=== PATIENT | female | born 1965 | race Caucasian/White ===

== ENCOUNTER 2017-01-17 05:22 | Day surgery (SDC) | payer OTHER ==
[~2017-01-17 05:22] MED LIST: LR 1,000 ML IV SCH; cefOXitin SODIUM 2 GM in D5W 100 ML IV ONE
[2017-01-17] MEDS ORDERED: LR 1,000 ML IV ONE (06:06)
[2017-01-17 06:51] LABS: % IMMATURE GRANULYOCYTES 0.5 % (0.0-1.1); ABSOLUTE IMMATURE GRANULOCYTES 0.05 10^3/uL (0.00-0.10); ADD DIFF? NO; ADD MORPH? NO; ADD SCAN? NO; ATYPICAL LYMPHOCYTE FLAG 10 (0-99); FRAGMENT RBC FLAG 0 (0-99); HEMOGLOBIN 13.2 g/dL (12.6-16.3); LEFT SHIFT FLG 0 (0-99); LIPEMIA HEMOLYSIS FLAG 90 (0-99); MEAN CELL HEMOGLOBIN 32.8 pg (27.9-34.1); MEAN CELL HEMOGLOBIN CONCENTR. 33.8 g/dL (32.4-36.7); PLATELET CLUMPS FLAG 0 (0-99); PLATELET COUNT 262 10^3/uL (150-400); RED BLOOD CELL COUNT 4.02 10^6/uL (4.18-5.33); RED CELL DISTRIBUTION WIDTH 13.3 % (11.5-15.2)
[2017-01-17] MEDS ORDERED: HEPARIN 1000 UNIT/1 ML MDV ONE (06:56)
[2017-01-17] MEDS ORDERED: ceFAZolin 1 GM/5 ML SYR ONE (06:56)
[2017-01-17] MEDS ORDERED: BUPIVACAINE 0.5% 30 ML SDV ONE (06:57)
[2017-01-17] MEDS ORDERED: cefOXitin SODIUM 2 GM in D5W 100 ML IV ONE (07:00)
[2017-01-17] MEDS ORDERED: LR 1,000 ML IV SCH (07:00)
[2017-01-17 07:05] LABS: ANION GAP 10 mEq/L (8-16); CALCIUM 9.7 mg/dL (8.5-10.4); CARBON DIOXIDE 20 mEq/l (22-31); CHLORIDE 105 mEq/L (97-110); CREATININE 0.9 mg/dL (0.6-1.0); GLOMERULAR FILTRATION RATE > 60; GLUCOSE 84 mg/dL (70-100); POTASSIUM 4.7 mEq/L (3.5-5.2); SODIUM 135 mEq/L (134-144)
--- NOTE | 2017-01-17 07:05 | PDANEPAE ---
ANE History of Present Illness laparoscopic cecectomy with appendectomy ANE Past Medical History - Cardiovascular History Hx Hypertension: No Hx Arrhythmias: No Hx Chest Pain: No Hx Coronary Artery / Peripheral Vascular Disease: No Hx CHF / Valvular Disease: No Hx Palpitations: No - Pulmonary History Hx COPD: No Hx Asthma/Reactive Airway Disease: No Hx Recent Upper Respiratory Infection: No Hx Oxygen in Use at Home: No Hx Sleep Apnea: No Sleep Apnea Screening Result - Last Documented: Negative Pulmonary History Comment: stopped smoking 1 yr ago - Neurologic History Hx Cerebrovascular Accident: No Hx Seizures: No Hx Dementia: No - Endocrine History Hx Diabetes: No Hypothyroid: No Hyperthyroid: No Obesity: mild - Renal History Hx Renal Disorders: No - Liver History Hx Hepatic Disorders: No - Neurological & Psychiatric Hx Hx Neurological and Psychiatric Disorders: No - Cancer History Hx Cancer: No - Congenital Disorder History Hx Congenital Disorders: No - GI History GERD: no Hx Gastrointestinal Disorders: Yes Gastrointestinal History Comment: benign polyp between intestine and appendix - found on colonscopy. - Chronic Pain History Chronic Pain: No - Surgical History Prior Surgeries: ACL L knee. hysterectomy. C section. ruiz's neuroma excision. Anes for colonoscopies x2 ANE Review of Systems Review of systems is: negative - Exercise capacity METS (RN): 4 METS ANE Patient History - Allergies Allergies/Adverse Reactions: No Known Allergies Allergy (Unverified 01/11/17 09:39) - Home Medications Home Medications: Cholecalciferol Vit D3 [Vitamin D3 (*)] 5,000 units PO DAILY 01/11/17 [Last Taken 01/16/17 06:30] FLUoxetine [Prozac 20 MG (*)] 20 mg PO DAILY 01/11/17 [Last Taken 01/16/17 06:30 ] Herbals/Supplements -Info Only 1 ea PO DAILY 01/11/17 [Last Taken 01/16/17 06:30 ] Tram-3 Fatty Acids [Fish Oil 1000 mg (*)] 1,000 mg PO DAILY 01/11/17 [Last Taken 01/16/17 06:30] buPROPion XL [Wellbutrin Xl] 300 mg PO DAILY 01/11/17 [Last Taken 01/16/17 06:30 ] - NPO status NPO Since - Liquids (Date): 01/16/17 NPO Since - Liquids (Time): 23:15 NPO Since - Solids (Date): 01/16/17 NPO Since - Solids (Time): 19:35 - Anes Hx Anes Hx: no prior problems - Smoking Hx Smoking Status: Former smoker Marijuana use: Yes - Alcohol Use Alcohol Use: Occasionally - Family Anes Hx Family Anes Hx: neg - N/A ANE Labs/Vital Signs - Labs Result Diagrams: 01/17/17 06:34 01/17/17 06:34 - Vital Signs Blood Pressure: 115/71 Heart Rate: 72 Respiratory Rate: 15 O2 Sat (%): 95 Height: 160.02 cm Weight: 74.843 kg ANE Physical Exam - Airway Neck exam: FROM Mallampati Score: Class 2 Mouth exam: normal dental/mouth exam - Pulmonary Pulmonary: no respiratory distress - Cardiovascular Cardiovascular: regular rate and rhythym, no murmur, rub, or gallop - ASA Status ASA Status: II ANE Anesthesia Plan Anesthesia Plan: general endotracheal anesthesia
[2017-01-17] MEDS ORDERED: MIDAZOLAM 2 MG/2 ML VIAL IVP ONE (07:06)
[2017-01-17] MEDS ORDERED: PROPOFOL/EMULSION 500 MG/50 ML BOTTLE IV ONE ×2 (07:18→07:19)
[2017-01-17] MEDS ORDERED: fentaNYL 100 MCG/2 ML INJ ONE ×3 (07:19→07:20)
--- NOTE | 2017-01-17 07:26 | PDHPUP ---
History & Physical Update H&P update statement: This history and physical update is based on an assessment of the patient which was completed after admission or registration (within 24 hours), but prior to the surgery/procedure. H&P update: H&P reviewed & patient examined, no change in patient's condition since H&P completed
[2017-01-17] MEDS ORDERED: ONDANSETRON 4 MG/2 ML VIAL IVP PRN (08:14)
[2017-01-17] MEDS ORDERED: fentaNYL 100 MCG/2 ML INJ IVP PRN (08:14)
[2017-01-17] MEDS ORDERED: HYDROCODONE/APAP 5/325 TAB PO PRN ×2 (08:14→09:45)
[2017-01-17] MEDS ORDERED: PROMETHAZINE HCL 25 MG/ML INJ IVP PRN (08:14)
[2017-01-17] MEDS ORDERED: OXYCODONE/APAP 5/325 TAB PO PRN (08:14)
[2017-01-17] MEDS ORDERED: HYDROmorphONE/DILAUDID 1 MG/ML SYR IVP PRN (08:14)
[2017-01-17] MEDS ORDERED: LR 500 ML IV PRN (08:14)
[2017-01-17] MEDS ORDERED: NALOXONE HCL 0.4 MG/ML INJ IVP PRN (08:14)
[2017-01-17] MEDS ORDERED: SUGAMMADEX SODIUM 200 MG/2 ML VIAL IVP ONE (08:19)
[2017-01-17] MEDS ORDERED: KETOROLAC 30 MG/1 ML SDV ONE (08:19)
[2017-01-17] MEDS ORDERED: LIDOCAINE 2% 5 ML SDV ONE (08:19)
[2017-01-17] MEDS ORDERED: ROCURONIUM 100 MG/10 ML VIAL ONE (08:19)
[2017-01-17] MEDS ORDERED: ONDANSETRON 4 MG/2 ML VIAL ONE (08:19)
--- NOTE | 2017-01-17 09:41 | POSTOPPROG ---
Post Op Note Date of Operation: 01/17/17 Surgeon: Cale Avilez Anesthesiologist: ÁNGEL Anesthesia: GET(General Endotracheal) Pre-op Diagnosis: CECAL POLYP Post-op Diagnosis: SAME Indication: SERRATED ADENOMA Procedure: LAP APPE AND PARTIAL CECECTOMY Findings: SMALL POLYP NEAR APPENDICEAL OPENING Inf/Abcess present in the surg proc area at time of surgery?: No Depth: Organ Space EBL: Minimal Complications: 0 Specimen(s): APPENDIX AND CECUM WEDGE
--- NOTE | 2017-01-17 09:47 | POSTANESTH ---
Post Anesthetic Evaluation Cardiovascular Status: Normal, Stable Respiratory Status: Normal, Stable Level of Consciousness/Mental Status: Can Participate in Eval Pain Control: Adequate, Prn Tx Ordered Nausea/Vomiting Control: Adequate, Prn Tx Ordered Complications Possibly Related to Anesthesia: None Noted
[2017-01-17 10:18] VITALS: PULSE 67; RESP 16; O2SAT 94
[2017-01-17 12:20] VITALS: BP 152/78; TEMP 97.9
== END 2017-01-17 11:16 | disposition home or self-care (01) ==
LOC: FSGY 05:22 → F3E 05:22 → UNDOADMOB 05:22 → EDSTATUS 07:15 → FSGY 11:16
PROVIDERS: ATTEND Surgery
PROC: 0DTJ4ZZ Resection of Appendix, Percutaneous Endoscopic Approach (ICD-10-PCS; principal; 2017-01-17 07:15)
DX: D12.1 Benign neoplasm of appendix (principal)
CPT/HCPCS: J0694; J1885; J2250; J2405; J2704; J3010

== ENCOUNTER → 2017-04-10 | Outpatient (CLI) | payer OTHER | LOC: CIMAGING 08:09 | PROVIDERS: ATTEND Family Medicine | DX: R10.13 Epigastric pain (principal); R10.11 Right upper quadrant pain | CPT/HCPCS: 76705-PO ==